=== PATIENT | male | born 1950 | race Caucasian/White ===

== ENCOUNTER → 2016-04-01 | Outpatient (CLI) | payer MEDICARE, OTHER ==
[2016-04-01 09:49] LABS: Anion Gap 11 mmol/L; Blood Urea Nitrogen 16 mg/dL (9-20); Calcium 9.5 mg/dL (8.4-10.2); Carbon Dioxide 26 mmol/L (22-30); Chloride 104 mmol/L (98-107); Glucose 102 mg/dL (74-99); Non-African American GFR(MDRD) >60 (>60 ml/min/1.73 sqM); Potassium 4.5 mmol/L (3.5-5.1); Sodium 141 mmol/L (137-145)
[2016-04-01 10:48] LABS: Hemoglobin A1C 7.5 % (4.2-6.1)
== END | disposition home or self-care (01) ==
LOC: LABWHC1 08:30
PROVIDERS: ATTEND Internal Medicine
DX: E11.9 Type 2 diabetes mellitus without complications (principal); E87.8 Other disorders of electrolyte and fluid balance, not elsewhere classified
CPT/HCPCS: 36415; 80048; 83036

== ENCOUNTER → 2016-10-24 | Outpatient (CLI) | payer MEDICARE, OTHER ==
[2016-10-24 08:19] LABS: CH 31.7; CHCM 33.8; HCT 43.6 % (39.0-53.0); HDW 2.66; HGB 14.7 gm/dL (13.0-17.5); MCH 31.8 pg (25.0-35.0); MCHC 33.7 g/dL (31.0-37.0); MCV 94.3 fL (80.0-100.0); Mean Platelet Volume 6.8; RBC 4.62 m/uL (4.30-5.90); RDW 12.3 % (11.5-15.5); WBC 7.7 k/uL (3.8-10.6)
[2016-10-24 10:38] LABS: ALT 45 U/L (21-72); AST 26 U/L (17-59); Alkaline Phosphatase 150 U/L (38-126); Anion Gap 11 mmol/L; Blood Urea Nitrogen 17 mg/dL (9-20); Calcium 9.5 mg/dL (8.4-10.2); Carbon Dioxide 26 mmol/L (22-30); Chloride 103 mmol/L (98-107); Cholesterol 111 mg/dL (<200); Glucose 93 mg/dL (74-99); HDL Cholesterol 34 mg/dL (40-60); Non-African American GFR(MDRD) >60 (>60 ml/min/1.73 sqM); Potassium 4.4 mmol/L (3.5-5.1); Sodium 140 mmol/L (137-145); Total Bilirubin 0.8 mg/dL (0.2-1.3); Total Protein 6.3 g/dL (6.3-8.2)
[2016-10-24 11:06] LABS: Prostate Specific Antigen 0.36 ng/mL (0.00-4.00)
[2016-10-24 12:32] LABS: Hemoglobin A1C 8.3 % (4.2-6.1)
== END | disposition home or self-care (01) ==
LOC: LABWHC1 07:43
PROVIDERS: ATTEND Internal Medicine
DX: E87.8 Other disorders of electrolyte and fluid balance, not elsewhere classified (principal); E78.4 Other hyperlipidemia; R53.83 Other fatigue; N40.0 Benign prostatic hyperplasia without lower urinary tract symptoms; E11.69 Type 2 diabetes mellitus with other specified complication
CPT/HCPCS: 36415; 80053; 80061; 83036; 84153; 85027

== ENCOUNTER → 2017-06-18 | Outpatient (CLI) | payer MEDICARE, OTHER ==
[2017-06-18 08:39] LABS: Anion Gap 13 mmol/L; Blood Urea Nitrogen 17 mg/dL (9-20); Calcium 9.5 mg/dL (8.4-10.2); Carbon Dioxide 26 mmol/L (22-30); Chloride 103 mmol/L (98-107); Glucose 100 mg/dL (74-99); Potassium 4.3 mmol/L (3.5-5.1); Sodium 142 mmol/L (137-145)
[2017-06-18 20:47] LABS: Hemoglobin A1C 7.8 % (4.0-6.0)
== END | disposition home or self-care (01) ==
LOC: LABWHC1 07:48
PROVIDERS: ATTEND Internal Medicine
DX: E11.9 Type 2 diabetes mellitus without complications (principal); E87.8 Other disorders of electrolyte and fluid balance, not elsewhere classified
CPT/HCPCS: 36415; 80048; 83036

== ENCOUNTER → 2017-10-21 | Outpatient (CLI) | payer MEDICARE, OTHER ==
[2017-10-21 07:57] LABS: HCT 39.6 % (39.0-53.0); HGB 13.5 gm/dL (13.0-17.5); Mean Platelet Volume 6.8; Platelet Count 190 k/uL (150-450); RBC 4.21 m/uL (4.30-5.90); RDW 12.3 % (11.5-15.5); WBC 6.8 k/uL (3.8-10.6)
[2017-10-21 12:30] LABS: ALT 41 U/L (21-72); AST 26 U/L (17-59); Albumin 3.8 g/dL (3.5-5.0); Alkaline Phosphatase 134 U/L (38-126); Anion Gap 8 mmol/L; Blood Urea Nitrogen 19 mg/dL (9-20); Calcium 9.2 mg/dL (8.4-10.2); Carbon Dioxide 26 mmol/L (22-30); Chloride 106 mmol/L (98-107); Cholesterol 117 mg/dL (<200); Glucose 83 mg/dL (74-99); HDL Cholesterol 36 mg/dL (40-60); LDL Cholesterol,Calculated 50 mg/dL (0-99); Potassium 4.5 mmol/L (3.5-5.1); Sodium 140 mmol/L (137-145); Total Bilirubin 0.4 mg/dL (0.2-1.3); Total Protein 5.8 g/dL (6.3-8.2); Triglycerides 153 mg/dL (<150)
[2017-10-21 13:00] LABS: Prostate Specific Antigen 0.37 ng/mL (0.00-4.00)
[2017-10-21 13:17] LABS: Hemoglobin A1C 8.6 % (4.0-6.0)
== END | disposition home or self-care (01) ==
LOC: LABWHC1 06:53
PROVIDERS: ATTEND Internal Medicine
DX: E78.4 Other hyperlipidemia (principal); E87.8 Other disorders of electrolyte and fluid balance, not elsewhere classified; N40.0 Benign prostatic hyperplasia without lower urinary tract symptoms; E11.9 Type 2 diabetes mellitus without complications; R53.83 Other fatigue
CPT/HCPCS: 36415; 80053; 80061; 83036; 84153; 85027

== ENCOUNTER → 2018-04-24 | Outpatient (CLI) | payer MEDICARE, OTHER ==
[2018-04-24 16:42] LABS: Anion Gap 8.5 mmol/L (4.00-12.00); Calcium 9.3 mg/dL (8.7-10.3); Carbon Dioxide 26.5 mmol/L (21.6-31.8); Potassium 4.7 mmol/L (3.5-5.5)
[2018-04-24 17:42] LABS: Hemoglobin A1C 9.3 % (4.0-6.0)
== END | disposition home or self-care (01) ==
LOC: LABWHC1 07:42
PROVIDERS: ATTEND Internal Medicine
DX: E87.8 Other disorders of electrolyte and fluid balance, not elsewhere classified (principal); E11.69 Type 2 diabetes mellitus with other specified complication
CPT/HCPCS: 36415; 80048; 83036

== ENCOUNTER → 2018-06-24 | Outpatient (CLI) | payer MEDICARE, OTHER ==
[2018-06-24 12:05] LABS: Anion Gap 6.2 mmol/L (4.00-12.00); Calcium 9.2 mg/dL (8.7-10.3); Carbon Dioxide 27.8 mmol/L (21.6-31.8); Potassium 4.3 mmol/L (3.5-5.5)
[2018-06-24 14:37] LABS: Hemoglobin A1C 7.8 % (4.0-6.0)
== END ==
LOC: LABWHC1 07:09
PROVIDERS: ATTEND Internal Medicine
DX: E11.69 Type 2 diabetes mellitus with other specified complication (principal); E87.8 Other disorders of electrolyte and fluid balance, not elsewhere classified
CPT/HCPCS: 36415; 80048; 83036

== ENCOUNTER → 2018-10-22 | Outpatient (CLI) | payer MEDICARE, OTHER ==
[2018-10-22 07:33] LABS: HCT 41.9 % (39.0-53.0); HGB 13.9 gm/dL (13.0-17.5); MCH 31.7 pg (25.0-35.0); MCHC 33.3 g/dL (31.0-37.0); MCV 95.3 fL (80.0-100.0); Mean Platelet Volume 7.1; Platelet Count 208 k/uL (150-450); RDW 12.4 % (11.5-15.5)
[2018-10-22 12:19] LABS: Hemoglobin A1C 8.4 % (4.0-6.0)
[2018-10-22 14:02] LABS: African American GFR (CKD) 102.1 (60.0-200.0); Albumin 4.2 g/dL (3.80-4.90); Anion Gap 6.6 mmol/L (4.00-12.00); BUN/Creat Ratio 21.11 Ratio (12.00-20.00); Calcium 8.9 mg/dL (8.7-10.3); Carbon Dioxide 25.4 mmol/L (21.6-31.8); Globulin 1.4 g/dL (1.6-3.3); LDL Cholesterol,Calculated 64.2 mg/dL (0.0-131.0); Potassium 4.4 mmol/L (3.5-5.5); Total Bilirubin 0.5 mg/dL (0.3-1.2); Total Protein 5.6 g/dL (6.2-8.2); VLDL Calculation 22.8 mg/dL (5.00-40.00)
== END ==
LOC: LABWHC1 06:57
PROVIDERS: ATTEND Internal Medicine
DX: E87.8 Other disorders of electrolyte and fluid balance, not elsewhere classified (principal); E78.41 Elevated Lipoprotein(a); N40.0 Benign prostatic hyperplasia without lower urinary tract symptoms; E11.69 Type 2 diabetes mellitus with other specified complication; R53.83 Other fatigue
CPT/HCPCS: 36415; 80053; 80061; 83036; 84153; 85027

== ENCOUNTER → 2019-03-23 | Outpatient (CLI) | payer MEDICARE, OTHER ==
[2019-03-23 15:57] LABS: African American GFR (CKD) 101.4 (60.0-200.0); Anion Gap 5.2 mmol/L (4.00-12.00); BUN/Creat Ratio 16.67 Ratio (12.00-20.00); Calcium 9.3 mg/dL (8.7-10.3); Carbon Dioxide 27.8 mmol/L (21.6-31.8); Non-African American GFR(CKD) 87.5 (60.0-200.0); Potassium 4.3 mmol/L (3.5-5.5)
[2019-03-23 17:48] LABS: Hemoglobin A1C 8.5 % (4.0-6.0)
== END | disposition home or self-care (01) ==
LOC: LABWHC1 08:16
PROVIDERS: ATTEND Family Medicine
DX: E11.319 Type 2 diabetes mellitus with unspecified diabetic retinopathy without macular edema (principal); N40.0 Benign prostatic hyperplasia without lower urinary tract symptoms
CPT/HCPCS: 36415; 80048; 83036

== ENCOUNTER → 2019-07-23 | Outpatient (CLI) | payer MEDICARE, OTHER ==
[2019-07-23 08:47] LABS: HCT 43.4 % (39.0-53.0); HGB 13.7 gm/dL (13.0-17.5); MCH 31.1 pg (25.0-35.0); MCHC 31.5 g/dL (31.0-37.0); MCV 98.8 fL (80.0-100.0); Mean Platelet Volume 7.4; Platelet Count 221 k/uL (150-450); RDW 12.2 % (11.5-15.5); WBC 6.3 k/uL (3.8-10.6)
[2019-07-23 16:24] LABS: African American GFR (CKD) 106.4 (60.0-200.0); Albumin 4.3 g/dL (3.80-4.90); Albumin/Globulin Ratio 2.69 (1.60-3.17); Anion Gap 12.1 mmol/L (4.00-12.00); Calcium 9.4 mg/dL (8.7-10.3); Carbon Dioxide 24.9 mmol/L (21.6-31.8); Globulin 1.6 g/dL (1.6-3.3); Non-African American GFR(CKD) 91.8 (60.0-200.0); Potassium 4.7 mmol/L (3.5-5.5); Total Bilirubin 0.6 mg/dL (0.3-1.2); Total Protein 5.9 g/dL (6.2-8.2)
== END | disposition home or self-care (01) ==
LOC: LABWHC1 08:05
PROVIDERS: ATTEND Family Medicine
DX: E11.319 Type 2 diabetes mellitus with unspecified diabetic retinopathy without macular edema (principal)
CPT/HCPCS: 36415; 80053; 83036; 85027

== ENCOUNTER → 2019-10-29 | Outpatient (CLI) | payer MEDICARE, OTHER ==
[2019-10-29 08:02] LABS: HCT 42.7 % (39.0-53.0); HGB 13.9 gm/dL (13.0-17.5); MCH 31.3 pg (25.0-35.0); MCHC 32.6 g/dL (31.0-37.0); MCV 96.3 fL (80.0-100.0); Mean Platelet Volume 7.6; Platelet Count 210 k/uL (150-450); RBC 4.43 m/uL (4.30-5.90); WBC 6.4 k/uL (3.8-10.6)
[2019-10-29 12:36] LABS: African American GFR (CKD) 106.4 (60.0-200.0); Albumin 4.2 g/dL (3.80-4.90); Albumin/Globulin Ratio 2.8 (1.60-3.17); Calcium 9.2 mg/dL (8.7-10.3); Chol/HDL Ratio 3.11; Globulin 1.5 g/dL (1.6-3.3); Non-African American GFR(CKD) 91.8 (60.0-200.0); Potassium 4.3 mmol/L (3.5-5.5); Total Bilirubin 0.5 mg/dL (0.2-1.2); Total Protein 5.7 g/dL (6.2-8.2)
[2019-10-29 15:06] LABS: Hemoglobin A1C 7.1 % (4.0-6.0)
== END | disposition home or self-care (01) ==
LOC: LABWHC1 07:24
PROVIDERS: ATTEND Family Medicine
DX: E11.319 Type 2 diabetes mellitus with unspecified diabetic retinopathy without macular edema (principal); R53.83 Other fatigue; E55.9 Vitamin D deficiency, unspecified
CPT/HCPCS: 36415; 80053; 80061; 82306; 83036; 84443; 85027

== ENCOUNTER → 2020-02-04 | Outpatient (CLI) | payer MEDICARE, OTHER ==
[2020-02-04 08:45] LABS: HCT 43.8 % (39.0-53.0); HGB 14.4 gm/dL (13.0-17.5); MCH 31.5 pg (25.0-35.0); MCHC 32.8 g/dL (31.0-37.0); MCV 95.9 fL (80.0-100.0); Mean Platelet Volume 7.4; Platelet Count 231 k/uL (150-450); RBC 4.57 m/uL (4.30-5.90); RDW 12.6 % (11.5-15.5); WBC 6.6 k/uL (3.8-10.6)
[2020-02-04 15:49] LABS: African American GFR (CKD) 106.4 (60.0-200.0); Albumin 4.1 g/dL (3.80-4.90); Albumin/Globulin Ratio 2.56 (1.60-3.17); Anion Gap 5.4 mmol/L (4.00-12.00); BUN/Creat Ratio 18.75 Ratio (12.00-20.00); Calcium 9.3 mg/dL (8.7-10.3); Carbon Dioxide 26.6 mmol/L (21.6-31.8); Chol/HDL Ratio 3.54; Globulin 1.6 g/dL (1.6-3.3); LDL Cholesterol,Calculated 70.2 mg/dL (0.0-131.0); Non-African American GFR(CKD) 91.8 (60.0-200.0); Potassium 4.6 mmol/L (3.5-5.5); Prostate Specific Antigen 0.4 ng/mL (0.0-4.5); Total Bilirubin 0.5 mg/dL (0.2-1.2); Total Protein 5.7 g/dL (6.2-8.2); VLDL Calculation 18.8 mg/dL (5.00-40.00)
[2020-02-04 16:40] LABS: Hemoglobin A1C 7.3 % (4.0-6.0)
== END | disposition home or self-care (01) ==
LOC: LABWHC1 08:00
PROVIDERS: ATTEND Family Medicine
DX: I10 Essential (primary) hypertension (principal); N40.0 Benign prostatic hyperplasia without lower urinary tract symptoms; E11.319 Type 2 diabetes mellitus with unspecified diabetic retinopathy without macular edema
CPT/HCPCS: 36415; 80053; 80061; 83036; 84153; 85027

== ENCOUNTER → 2020-05-05 | Outpatient (CLI) | payer MEDICARE, OTHER ==
[2020-05-05 15:09] LABS: HCT 43.1 % (39.6-50.0); HGB 13.9 g/dL (13.0-17.0); MCH 31.7 pg (27.0-32.0); MCHC 32.3 g/dL (32.0-37.0); MCV 98.2 fL (80.0-97.0); Mean Platelet Volume 10.7 fL (9.5-12.2); Platelet Count 195 X 10*3/uL (140-440); RBC 4.39 X 10*6/uL (4.40-5.60); RDW 12.4 % (11.5-14.5); WBC 7.12 X 10*3/uL (4.50-10.00)
[2020-05-05 16:16] LABS: African American GFR (CKD) 105.6 (60.0-200.0); Albumin 4.4 g/dL (3.80-4.90); Albumin/Globulin Ratio 2.75 (1.60-3.17); Anion Gap 7.1 mmol/L (4.00-12.00); Carbon Dioxide 26.9 mmol/L (21.6-31.8); Chol/HDL Ratio 3.29; Globulin 1.6 g/dL (1.6-3.3); LDL Cholesterol,Calculated 68.2 mg/dL (0.0-131.0); Non-African American GFR(CKD) 91.1 (60.0-200.0); Potassium 4.4 mmol/L (3.5-5.5); Total Bilirubin 0.5 mg/dL (0.3-1.2); VLDL Calculation 27.8 mg/dL (5.00-40.00)
[2020-05-05 17:53] LABS: Hemoglobin A1C 8.2 % (4.0-6.0)
== END | disposition home or self-care (01) ==
LOC: LABWHC1 07:43
PROVIDERS: ATTEND Family Medicine
DX: E11.319 Type 2 diabetes mellitus with unspecified diabetic retinopathy without macular edema (principal); I10 Essential (primary) hypertension
CPT/HCPCS: 36415; 80053; 80061; 83036; 85027

== ENCOUNTER → 2020-08-08 | Outpatient (CLI) | payer MEDICARE, OTHER ==
[2020-08-08 11:41] LABS: HCT 41.2 % (39.6-50.0); HGB 13.6 g/dL (13.0-17.0); MCH 32.2 pg (27.0-32.0); MCV 97.6 fL (80.0-97.0); Mean Platelet Volume 10.8 fL (9.5-12.2); Platelet Count 221 X 10*3/uL (140-440); RBC 4.22 X 10*6/uL (4.40-5.60); RDW 12.4 % (11.5-14.5); WBC 7.86 X 10*3/uL (4.50-10.00)
[2020-08-08 14:12] LABS: African American GFR (CKD) 105.6 (60.0-200.0); Albumin 4.1 g/dL (3.80-4.90); Albumin/Globulin Ratio 2.41 (1.60-3.17); Anion Gap 10.4 mmol/L (4.00-12.00); BUN/Creat Ratio 21.25 Ratio (12.00-20.00); Calcium 9.1 mg/dL (8.7-10.3); Carbon Dioxide 25.6 mmol/L (21.6-31.8); Chol/HDL Ratio 3.2; Globulin 1.7 g/dL (1.6-3.3); Non-African American GFR(CKD) 91.1 (60.0-200.0); Potassium 4.5 mmol/L (3.5-5.5); Total Bilirubin 0.5 mg/dL (0.2-1.2); Total Protein 5.8 g/dL (6.2-8.2)
[2020-08-08 16:13] LABS: Hemoglobin A1C 7.7 % (4.0-6.0)
== END | disposition home or self-care (01) ==
LOC: LABWHC1 07:12
PROVIDERS: ATTEND Family Medicine
DX: N40.0 Benign prostatic hyperplasia without lower urinary tract symptoms (principal); E78.00 Pure hypercholesterolemia, unspecified; E11.319 Type 2 diabetes mellitus with unspecified diabetic retinopathy without macular edema; R53.83 Other fatigue
CPT/HCPCS: 36415; 80053; 80061; 83036; 84443; 85027

== ENCOUNTER → 2020-11-08 | Outpatient (CLI) | payer MEDICARE, OTHER ==
[2020-11-08 15:25] LABS: MCH 31.8 pg (27.0-32.0); MCHC 33.3 g/dL (32.0-37.0); MCV 95.5 fL (80.0-97.0); Mean Platelet Volume 10.4 fL (9.5-12.2); Platelet Count 239 X 10*3/uL (140-440); RBC 4.71 X 10*6/uL (4.40-5.60); RDW 11.9 % (11.5-14.5); WBC 8.18 X 10*3/uL (4.50-10.00)
[2020-11-08 16:34] LABS: Hemoglobin A1C 7.4 % (4.0-6.0)
[2020-11-08 18:40] LABS: African American GFR (CKD) 100.6 (60.0-200.0); Albumin 4.3 g/dL (3.80-4.90); Albumin/Globulin Ratio 2.39 (1.60-3.17); Anion Gap 9.9 mmol/L (4.00-12.00); BUN/Creat Ratio 16.67 Ratio (12.00-20.00); Calcium 9.3 mg/dL (8.7-10.3); Carbon Dioxide 26.1 mmol/L (21.6-31.8); Chol/HDL Ratio 4.78; Globulin 1.8 g/dL (1.6-3.3); LDL Cholesterol,Calculated 127.8 mg/dL (0.0-131.0); Non-African American GFR(CKD) 86.8 (60.0-200.0); Potassium 4.7 mmol/L (3.5-5.5); Total Bilirubin 0.6 mg/dL (0.3-1.2); Total Protein 6.1 g/dL (6.2-8.2); VLDL Calculation 27.2 mg/dL (5.00-40.00)
== END | disposition home or self-care (01) ==
LOC: LABWHC1 11-02 07:52
PROVIDERS: ATTEND Family Medicine
DX: E11.319 Type 2 diabetes mellitus with unspecified diabetic retinopathy without macular edema (principal); N40.0 Benign prostatic hyperplasia without lower urinary tract symptoms; E78.00 Pure hypercholesterolemia, unspecified; R53.83 Other fatigue
CPT/HCPCS: 36415; 80053; 80061; 83036; 84443; 85027

== ENCOUNTER → 2021-02-23 | Outpatient (CLI) | payer MEDICARE, OTHER ==
[2021-02-23 10:56] LABS: HCT 43.8 % (39.6-50.0); HGB 14.4 g/dL (13.0-17.0); MCH 31.1 pg (27.0-32.0); MCHC 32.9 g/dL (32.0-37.0); MCV 94.6 fL (80.0-97.0); Mean Platelet Volume 10.3 fL (9.5-12.2); Platelet Count 247 X 10*3/uL (140-440); RBC 4.63 X 10*6/uL (4.40-5.60); RDW 11.9 % (11.5-14.5); WBC 7.42 X 10*3/uL (4.50-10.00)
[2021-02-23 12:24] LABS: ALT 25 U/L (10-49); AST 20 U/L (14-35); African American GFR (CKD) 104.2 (60.0-200.0); Albumin 4.2 g/dL (3.8-4.9); Alkaline Phosphatase 152 U/L (41-126); Blood Urea Nitrogen 15.4 mg/dL (9.0-27.0); Calcium 9.4 mg/dL (8.7-10.3); Carbon Dioxide 24.7 mmol/L (20.0-27.5); Chloride 105 mmol/L (96-109); Chol/HDL Ratio 4.87 Ratio; Globulin 1.8 g/dL (1.6-3.3); Glucose 98 mg/dL (70-110); LDL Cholesterol,Calculated 97.5 mg/dL (0.0-131.0); Non-African American GFR(CKD) 89.9 (60.0-200.0); Potassium 4.9 mmol/L (3.5-5.5); Sodium 141 mmol/L (135-145)
== END | disposition home or self-care (01) ==
LOC: LABWHC1 08:01
PROVIDERS: ATTEND Family Medicine
DX: E11.65 Type 2 diabetes mellitus with hyperglycemia (principal)
CPT/HCPCS: 36415; 80053; 80061; 83036; 84443; 85027

== ENCOUNTER → 2021-04-16 | Outpatient (CLI) | payer MEDICARE, OTHER ==
--- NOTE | 2021-04-16 15:39 | MR ---
EXAMINATION TYPE: MR knee RT wo con DATE OF EXAM: 04/16/2021 COMPARISON: None. HISTORY: Right knee pain and swelling for 2 years. Prepatellar bursitis. Gowrie knee condition. TECHNIQUE: Multiplanar, multisequence imaging of the right knee is performed without IV contrast. FINDINGS: MEDIAL MENISCUS: Some medial extrusion medial meniscus on coronal images. Truncated appearance with a bnormal signal and irregularity posterior horn medial meniscus, there is full-thickness defect in the central body identified. LATERAL MENISCUS: Marked deformity of the posterior horn lateral meniscus extending to the central gabe dy, displaced meniscal fragment posteriorly is thought present. Anterior horn is truncated with abnor mal signal and irregularity along the inferior articular surface CRUCIATE LIGAMENTS: The anterior and posterior cruciate ligaments are intact and unremarkable. COLLATERAL LIGAMENTS: The medial collateral ligament and lateral collateral ligament complex are inta ct and unremarkable. EXTENSOR MECHANISM: Visualized quadriceps and patellar tendons are intact. Well-healed slightly displ aced bony fragment from the tibial tuberosity suspicious for old Davy-Schlatter injury. EFFUSION: Moderate size suprapatellar joint effusion. POPLITEAL CYST: Small multiseptated popliteal/coleman cyst. TRICOMPARTMENT SPACES: Moderate tricompartment joint space loss. Moderate spurring medial and lateral tibiofemoral compartments. CARTILAGE: Cartilaginous loss medial tibiofemoral compartment. BONE MARROW SIGNAL: Some areas of heterogeneous diminished T1 signal subchondral level of the tibial plateau without significant increased T2 signal. OTHER: No additional significant abnormality is appreciated. IMPRESSION: 1. Complex displaced full-thickness tear posterior horn lateral meniscus with flipped meniscal fragme nt. 2. Full-thickness tearing anterior horn lateral meniscus. 3. Full-thickness tear posterior horn medial meniscus extending into central body. 4. 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 5. Moderate suprapatellar joint effusion. 6. Moderate to severe tricompartment degenerative changes as detailed above. 7. Small multiseptated popliteal cyst.
== END | disposition home or self-care (01) ==
LOC: RADMRIMAIN 14:36
PROVIDERS: ATTEND Family Medicine
DX: M25.561 Pain in right knee (principal); M70.41 Prepatellar bursitis, right knee; M92.521 Juvenile osteochondrosis of tibia tubercle, right leg; S83.281D Other tear of lateral meniscus, current injury, right knee, subsequent encounter

== ENCOUNTER → 2021-06-01 | Outpatient (CLI) | payer MEDICARE, OTHER ==
[2021-06-01 14:49] LABS: HCT 44.7 % (39.6-50.0); HGB 14.6 g/dL (13.0-17.0); MCH 30.8 pg (27.0-32.0); MCHC 32.7 g/dL (32.0-37.0); MCV 94.3 fL (80.0-97.0); Mean Platelet Volume 10.7 fL (9.5-12.2); NRBC Per 100 WBC 0 /100 WBCS (0.0-0.0); Platelet Count 253 X 10*3/uL (140-440); RBC 4.74 X 10*6/uL (4.40-5.60); RDW 11.9 % (11.5-14.5)
[2021-06-01 16:44] LABS: ALT 30 U/L (10-49); AST 22 U/L (14-35); African American GFR (CKD) 102.3 (60.0-200.0); Albumin 4.3 g/dL (3.8-4.9); Albumin/Globulin Ratio 2.46 (1.60-3.17); Alkaline Phosphatase 139 U/L (41-126); BUN/Creat Ratio 18.47 Ratio (12.00-20.00); Blood Urea Nitrogen 15.7 mg/dL (9.0-27.0); Calcium 9.5 mg/dL (8.7-10.3); Carbon Dioxide 24.9 mmol/L (20.0-27.5); Chloride 103 mmol/L (96-109); Chol/HDL Ratio 5.25 Ratio; Globulin 1.7 g/dL (1.6-3.3); Glucose 87 mg/dL (70-110); LDL Cholesterol,Calculated 101.2 mg/dL (0.0-131.0); Non-African American GFR(CKD) 88.3 (60.0-200.0); Potassium 4.7 mmol/L (3.5-5.5); Sodium 140 mmol/L (135-145)
== END | disposition home or self-care (01) ==
LOC: LABWHC1 07:27
PROVIDERS: ATTEND Family Medicine
DX: E11.65 Type 2 diabetes mellitus with hyperglycemia (principal)
CPT/HCPCS: 36415; 80053; 80061; 83036; 84443; 85027

== ENCOUNTER 2021-06-21 12:21 | Day surgery (SDC) | payer MEDICARE, OTHER ==
[2021-06-19 12:14] VITALS: BMI 31.3
--- NOTE | 2021-06-20 14:01 | HP ---
HISTORY AND PHYSICAL DATE OF SURGERY: 06/21/2021 [place] 71-year-old gentleman seen with progressive right knee pain. We discussed options for treatment. He elected to proceed with arthroscopy. Consent was obtained. We also noted an area of symptomatic prepatellar bursitis. We discussed that as well. He elected to proceed with right knee open bursectomy. Consent for that portion of the procedure was also obtained. PAST MEDICAL HISTORY: [id number] diabetes, hypertension. PAST SURGICAL HISTORY: Shoulder surgery, eye surgery. DAILY MEDICATIONS: Glyburide, insulin, lisinopril, metformin. ALLERGIES: NONE. SOCIAL HISTORY: He denies tobacco use. PHYSICAL EVALUATION OF THE RIGHT KNEE: His range of motion is zero to 130. He does have a mild effusion. He also has an area of prepatellar bursal swelling with some tenderness in that area without evidence for any infective process. He is tender along the medial and lateral joint lines. Positive medial Kaleb's. Positive lateral Kaleb's. Ligaments stable. Hip rotation without pain. Distal neurovascular exam is intact. Right knee radiographs revealed moderate osteoarthritic changes. MRI right knee revealed medial and lateral meniscal tears along with a popliteal cyst. IMPRESSION: 1. Internal derangement of right knee with medial and lateral meniscal tears. 2. Right knee symptomatic prepatellar bursitis. 3. Right knee osteoarthritis. 4. Insulin-dependent diabetes. PLAN: 1. Right knee arthroscopy with partial medial/lateral meniscectomy and debridement. 2. Right knee open bursectomy. MMODL / IJN: [id number] /
[~2021-06-21 12:21] MED LIST: DEXAMETHASONE SOD PHOSPHATE 4 MG/ML 1 ML VIAL IV ONE; HYDROmorphone 0.5 MG/0.5 ML SYRINGE IVP PRN; LACTATED RINGERS 1,000 ML IV SCH; LIDOCAINE 1% (10MG/ML) FOR IV START INTRADERMA PRN; METOCLOPRAMIDE 5 MG/ML 2 ML VIAL IVP PRN; ONDANSETRON 4 MG/2 ML VIAL IVP ONE
[2021-06-21] MEDS ORDERED: LACTATED RINGERS 1,000 ML IV ONE ×2 (13:04→16:48)
[2021-06-21 13:13] LABS: Glucose,Whole Blood 126 mg/dL (75-99)
[2021-06-21] MEDS ORDERED: BUPIVACAINE (PF) 0.25% 30 ML VIAL SQ ONE ×3 (14:29→15:31)
[2021-06-21] MEDS ORDERED: fentaNYL (PF) 50 MCG/ML 2 ML AMP ONE (14:41)
[2021-06-21] MEDS ORDERED: SUCCINYLCHOLINE CHLORIDE 100 MG/5 ML SYR IV ONE (14:41)
[2021-06-21] MEDS ORDERED: LIDOCAINE 1% INJ 10MG/ML (20 ML MDV) ONE (14:41)
[2021-06-21] MEDS ORDERED: PROPOFOL 10 MG/ML 20 ML VIAL IV ONE (14:41)
[2021-06-21] MEDS ORDERED: MIDAZOLAM 2 MG/2 ML VIAL ONE (14:41)
--- NOTE | 2021-06-21 15:44 | P.OP ---
Date of Procedure: 06/21/21 Preoperative Diagnosis: 1. Internal derangement right knee 2. Right knee prepatellar bursitis Postoperative Diagnosis: 1. Tear medial and lateral meniscus right knee 2. Reactive synovitis medial, lateral and suprapatellar compartments right knee 3. Right knee prepatellar bursitis Procedure(s) Performed: 1. Arthroscopic partial medial and lateral meniscectomy right knee 2. Open prepatellar bursectomy right knee 3. Arthroscopic partial synovectomy medial, lateral and suprapatellar compartments right knee Anesthesia: LEONOR, local Surgeon: Juan R Rodriguez Dredge Pipe Operator #1: Hola Meraz Estimated Blood Loss (ml): 15 Pathology: none sent Condition: stable Disposition: PACU Indications for Procedure: 8-year-old patient seen with progressive right knee pain consistent with meniscal tear area and he also had a symptomatic a patellar bursitis. We discussed options for treatment. He elected to proceed with right knee arthroscopy along with open prepatellar bursectomy. Consent was obtained. Operative Findings: see description of procedure Description of Procedure: Patient was taken to the operative suite. Patient underwent a general anesthetic by the department of anesthesia. Patient was given preoperative antibiotics. The right lower extremity was placed in a well-padded arthroscopic leg martins. The right leg was prepped and draped in the normal sterile orthopedic fashion. A lateral parapatellar and suprapatellar incision was made. Trochars were inserted. Arthroscopy was initiated. Suprapatellar pouch revealed diffuse thick reactive synovitis. The patellofemoral joint appeared to articulate congruently. There was grade 2 chondromalacia of the patellofemoral joint with no significant tears present. The scope was guided into the medial gutter. No loose bodies or plica were identified. The scope was then guided into the medial compartment. A medial parapatellar incision was made. Trocar inserted followed by probe. There was a complex tear posterior horn medial meniscus. There were grade 2 chondromalacia changes of the medial compartment with no significant tears present. There was some thick reactive synovitis anteriorly. I performed a partial medial meniscectomy getting down to stable meniscal tissue. I performed a partial synovectomy decompressing the thick reactive synovitis anteriorly. The residual meniscus was probed and was found to be stable. There was good decompression of the synovitis. Scope and probe were then guided into the intercondylar notch. Cruciates were identified, probed and found to be stable. The scope and probe were then guided into lateral compartment. There was a complex tear involving the midbody and posterior horns of the lateral meniscus. There were grade 4, she changes of the tibial plateau and femoral condyle laterally with large areas of exposed bone on both sides. There was thick reactive synovitis anteriorly. I performed a partial lateral meniscectomy getting down to stable meniscal tissue. I performed a partial synovectomy decompressing the reactive synovitis. The residual meniscus was found to be stable. There was good decompression of the synovitis. The scope was in guided back into the suprapatellar compartment. I introduced a motorized shaver into the super patellar compartment. I debrided some piecemeal fragments of meniscus I encountered. I performed a partial syn ovectomy. Shaver was now removed. I took one more look around the entire knee, no residual debris. Instruments now removed from the joint. I now placed a fresh drape underneath the leg in place leg onto a sterile table. I made an anterior incision along the area of the prepatellar bursa sharply through skin. Spencer MORRISON assisted by retracting the soft tissues. I discovered significant thickened abnormal bursal looking tissue. I performed a bursectomy. There was a previous Davy-Schlatter prominence with good resection of the entire bursa. We irrigated the wound out copiously. Hem ostasis achieved electrocautery. The wound was again explored and it appeared we had excised the majority of the inflamed and irritated bursal tissue. The subcutaneous soft tissues were now repaired with 2-0 Vicryl. The skin was repaired with nylon suture. The arthroscopic portal sites were repaired with nylon suture. The joint was infiltrated with .25% Marcaine. Sterile dressings were applied. The patient was placed into a GRACIE hose. No tourniquet was utilized. The patient was awakened, transferred to a bed and taken to recovery stable satisfactory condition. Spencer MORRISON assisted with the procedure.
[2021-06-21 15:57] VITALS: TEMP 97.8
[2021-06-21 15:59] LABS: Glucose,Whole Blood 179 mg/dL (75-99)
[2021-06-21 16:25] VITALS: RESP 16
[2021-06-21 17:13] VITALS: BP 154/77; PULSE 82
== END 2021-06-21 17:45 | disposition home or self-care (01) ==
LOC: OR 12:21
PROVIDERS: ATTEND Orthopaedic Surgery
DX: M23.91 Unspecified internal derangement of right knee (principal); E11.9 Type 2 diabetes mellitus without complications; I10 Essential (primary) hypertension; K21.9 Gastro-esophageal reflux disease without esophagitis; Z79.4 Long term (current) use of insulin; Z79.84 Long term (current) use of oral hypoglycemic drugs
CPT/HCPCS: 29880; 29870; J2250; J1100; J0690; J2405; J2001; J3010; J0330; J2704

== ENCOUNTER → 2021-09-14 | Outpatient (CLI) | payer MEDICARE, OTHER ==
[2021-09-14 14:25] LABS: HGB 14.7 g/dL (13.0-17.0); MCH 30.1 pg (27.0-32.0); MCHC 32.7 g/dL (32.0-37.0); MCV 92.2 fL (80.0-97.0); Mean Platelet Volume 10.9 fL (9.5-12.2); NRBC Per 100 WBC 0 /100 WBCS (0.0-0.0); Platelet Count 237 X 10*3/uL (140-440); RBC 4.88 X 10*6/uL (4.40-5.60); RDW 11.9 % (11.5-14.5); WBC 6.79 X 10*3/uL (4.50-10.00)
[2021-09-14 15:06] LABS: ALT 29 U/L (10-49); AST 21 U/L (14-35); African American GFR (CKD) 103.4 (60.0-200.0); Albumin 4.3 g/dL (3.8-4.9); Albumin/Globulin Ratio 2.32 (1.60-3.17); Alkaline Phosphatase 161 U/L (41-126); BUN/Creat Ratio 16.91 Ratio (12.00-20.00); Calcium 9.3 mg/dL (8.7-10.3); Carbon Dioxide 24.6 mmol/L (20.0-27.5); Chloride 113 mmol/L (96-109); Chol/HDL Ratio 5.62 Ratio; Globulin 1.9 g/dL (1.6-3.3); Glucose 141 mg/dL (70-110); LDL Cholesterol,Calculated 114.7 mg/dL (0.0-131.0); Non-African American GFR(CKD) 89.2 (60.0-200.0); Potassium 5.3 mmol/L (3.5-5.5); Sodium 148 mmol/L (135-145); Total Protein 6.2 g/dL (6.2-8.2)
== END | disposition home or self-care (01) ==
LOC: LABWHC1 07:32
PROVIDERS: ATTEND Family Medicine
DX: E11.319 Type 2 diabetes mellitus with unspecified diabetic retinopathy without macular edema (principal)
CPT/HCPCS: 36415; 80053; 80061; 83036; 84443; 85027